=== PATIENT | female | born 1985 | race Two or more races ===

== ENCOUNTER 2019-11-14 13:52 | Inpatient (IN) | payer OTHER ==
[~2019-11-14] VITALS: Ht 154.9 cm; Wt 83.9 kg
[2019-12-01] MEDS ORDERED: ALBUTERO (12:22)
[2019-12-01] MEDS ORDERED: PULMOCORT (12:23)
[2019-12-01] MEDS ORDERED: PROBIOTIC1 EAC2 PO (12:24)
[2019-12-01] MEDS ORDERED: SINGULAIR 10MG10 MG PO (12:24)
[2019-12-01] MEDS ORDERED: MIRALAX PO (12:25)
[2019-12-07] MEDS ORDERED: POLY119PG PO (08:37)
[2019-12-07] MEDS ORDERED: PULMICORT FLEX90 MCG IH (08:39)
[2019-12-07] MEDS ORDERED: PROAIR HFA8.5 GM IH (08:39)
[2019-12-07] MEDS ORDERED: ADVAIR 100-501 EACH IH (08:40)
== END 2019-12-09 14:26 | disposition home or self-care (01) | DRG 331 ==
LOC: O/R 12-06 07:30 → SURH 12-06 07:30 → EDBD 12-06 09:00 → SURH 12-06 09:00
PROVIDERS: ADMIT Colon & Rectal Surgery; ATTEND Colon & Rectal Surgery
PROC: 0UB14ZZ Excision of Left Ovary, Percutaneous Endoscopic Approach (ICD-10-PCS; 2019-12-06)
PROC: 0DJD8ZZ Inspection of Lower Intestinal Tract, Via Natural or Artificial Opening Endoscopic (ICD-10-PCS; 2019-12-06)
PROC: 0DTN4ZZ Resection of Sigmoid Colon, Percutaneous Endoscopic Approach (ICD-10-PCS; principal; 2019-12-06 22:00)
DX: K57.32 Diverticulitis of large intestine without perforation or abscess without bleeding (principal); T18.4XXA Foreign body in colon, initial encounter; N83.202 Unspecified ovarian cyst, left side